=== PATIENT | female | born 1965 | race Caucasian/White ===

== ENCOUNTER 2017-10-28 08:00 | Outpatient (CLI) | payer BC | END 2017-10-28 08:01 | disposition home or self-care (01) | LOC: BICMAMMO 08:00 | PROVIDERS: ATTEND Obstetrics & Gynecology | DX: Z12.31 Encounter for screening mammogram for malignant neoplasm of breast (principal) | CPT/HCPCS: 77063 ==

== ENCOUNTER 2019-01-21 09:36 | Outpatient (CLI) | payer BC ==
--- NOTE | 2019-01-22 08:59 | MMO ---
FILMS COMPARED: The present examination has been compared to prior imaging studies performed at [facility] on 10/28/2017, and at [facility] on 03/17/2014 and 10/26/2016. MAMMOGRAM FINDINGS: There are scattered fibroglandular densities. Benign calcifications are noted bilaterally. There are no suspicious masses, calcifications or areas of architectural distortion. Left biopsy clip. IMPRESSION: FINDINGS IN BOTH BREASTS ARE BENIGN. A ROUTINE FOLLOW-UP MAMMOGRAM IN 1 YEAR IS RECOMMENDED. ACR BI-RADS Category 2 - Benign finding
== END 2019-01-21 09:37 | disposition home or self-care (01) ==
LOC: BICMAMMO 09:36
PROVIDERS: ATTEND Obstetrics & Gynecology
DX: Z12.31 Encounter for screening mammogram for malignant neoplasm of breast (principal)
CPT/HCPCS: 77063; 77067

== ENCOUNTER 2020-10-06 08:16 | Outpatient (CLI) | payer BC ==
--- NOTE | 2020-10-06 08:57 | MMO ---
Bilateral MAMMO Bilat Screen [facility]. CLINICAL HISTORY: Patient is 54 years old and is seen for screening. The patient has no family history of breast cancer. The patient has no personal history of cancer. The patient has a history of left Stereotatic Biopsy - benign. VIEWS: The views performed were: bilateral craniocaudal with tomosynthesis and bilateral mediolateral oblique with tomosynthesis. FILMS COMPARED: The present examination has been compared to prior imaging studies performed at [facility] on 10/28/2017 and 01/21/2019, and at [facility] on 03/17/2014 and 10/26/2016. This study has been interpreted with the assistance of computer-aided detection. MAMMOGRAM FINDINGS: There are scattered fibroglandular densities. Finding 1: There is a stable grouping of calcifications at the outer aspect of the right breast posterior depth. On the MLO view, there is new asymmetry seen in association with these calcifications. There is a new focal asymmetry in the outer right breast with associated new clustered calcifications, positioned slightly medial and inferior to the above described cluster. Associated architectural distortion is suspected. Finding 2: There are stable benign appearing calcifications seen in the left breast. IMPRESSION: FINDING 1: FINDING IN THE RIGHT BREAST REQUIRES ADDITIONAL EVALUATION. RECOMMEND DIAGNOSTIC MAMMOGRAM. ULTRASOUND MAY ALSO PROVE USEFUL AT RECALL. THE RESULTS OF THIS EXAM WERE SENT TO THE PATIENT. ACR BI-RADS Category 0 - Incomplete: Need additional imaging evaluation. [facility] will notify the patient of the need for additional imaging services. MAMMOGRAPHY NOTE: 1. A negative mammogram report should not delay a biopsy if a dominant of clinically suspicious mass is present. 2. Approximately 10% to 15% of breast cancers are not detected by mammography. 3. Adenosis and dense breasts may obscure an underlying neoplasm. Reported by: AYLIN TREVIÑO MD Electonically Signed: [id number]
== END 2020-10-06 08:17 | disposition home or self-care (01) ==
LOC: BICMAMMO 08:16
PROVIDERS: ATTEND Obstetrics & Gynecology
DX: Z12.31 Encounter for screening mammogram for malignant neoplasm of breast (principal); R92.1 Mammographic calcification found on diagnostic imaging of breast; Z91.89 Other specified personal risk factors, not elsewhere classified
CPT/HCPCS: 77063; 77067

== ENCOUNTER 2020-10-11 14:14 | Outpatient (CLI) | payer BC ==
--- NOTE | 2020-10-11 15:15 | MMO ---
Right Breast MAMMO Unilat Diag [facility]. CLINICAL HISTORY: Patient is 54 years old and is seen for additional evaluation requested from prior study. The patient has no family history of breast cancer. The patient has no personal history of cancer. The patient has a history of left Stereotatic Biopsy - benign. VIEWS: The views performed were: right craniocaudal spot compression magnification; right craniocaudal spot compression with tomosynthesis; right mediolateral oblique spot compression with tomosynthesis; right mediolateral spot compression magnification; and right mediolateral with tomosynthesis. FILMS COMPARED: The present examination has been compared to prior imaging studies performed at [facility] on 10/28/2017, 01/21/2019, 10/06/2020 and 10/11/2020. This study has been interpreted with the assistance of computer-aided detection. MAMMOGRAM FINDINGS: There are scattered fibroglandular densities. The calcifications in the right upper outer breast appear to be associated with some architecutural distortion particularly on CC view and some of these appear indeterminate. IMPRESSION: FINDING IN THE RIGHT BREAST IS SUSPICIOUS. A STEREOTACTIC BREAST BIOPSY IS RECOMMENDED. THE RESULTS OF THIS EXAM WERE SENT TO THE PATIENT. ACR BI-RADS Category 4 - Suspicious abnormality - biopsy should be considered D/W pt in person @ 3:05 pm. MAMMOGRAPHY NOTE: 1. A negative mammogram report should not delay a biopsy if a dominant of clinically suspicious mass is present. 2. Approximately 10% to 15% of breast cancers are not detected by mammography. 3. Adenosis and dense breasts may obscure an underlying neoplasm. Reported by: RAINA SIMON MD Electonically Signed: [id number]
--- NOTE | 2020-10-11 15:44 | ULT ---
LIMITED RIGHT BREAST ULTRASOUND: 10/11/20 HISTORY: Abnormal mammograms. FINDINGS: Correlation is made with mammograms of 10/06/20 and 10/11/20. Sonographic evaluation of the right upper outer breast demonstrates a 3 mm well circumscribed hypoech oic nodule at the 9 o'clock position, 4 cm from the nipple. No other abnormalities are seen to corres pond to the findings on the mammogram. Sonographic evaluation of the right axilla demonstrates no lymphadenopathy. IMPRESSION: BI-RADS 4: Suspicious Abnormality - Stereotactic Biopsy of the calcifications in the right upper oute r breast Should Be Considered Usually requires biopsy Six month follow-up ultrasound of the 3 mm nodule in the right breast is recommended. Discussed in person with the patient at 3:05 p.m. POS: OFF
== END 2020-10-11 14:15 | disposition home or self-care (01) ==
LOC: BICMAMMO 14:14
PROVIDERS: ATTEND Obstetrics & Gynecology
DX: R92.8 Other abnormal and inconclusive findings on diagnostic imaging of breast (principal)
CPT/HCPCS: G0279

== ENCOUNTER → 2020-10-27 | Day surgery (SDC) | payer BC ==
--- NOTE | 2020-10-27 10:54 | MMO ---
EXAM: MAMMO Brst Bx Stereo PROVIDED CLINICAL HISTORY: 2 separate grouping of microcalcifications within the outer right breast, one located at approximatel y the 9:00 position and second grouping at approximately the 10:00 position right breast. Biopsy recommended. COMPARISON: Mammograms on 10/06/2020 10/11/2020 TECHNIQUE: The procedure including the risks and complications were explained to the patient, and informed conse nt was obtained. Patient was placed on the stereotactic guided breast biopsy table in the prone position. Microcalcifications in the outer right breast were localized via a lateral medial approach. The larger grouping of microcalcifications at approximately the 9:00 position were localized with stereotactic guidance. Skin and subcutaneous tissues were infiltrated with buffered 1% lidocaine for local anesthesia. A 10-gauge biopsy needle was advanced, and needle positioning was confirmed with stereotactic images. A total of 6 core needle biopsy specimens were obtained. Specimen mammogram was performed demonstrating microcalcifications in the provided specimen. A biopsy marker clip was deployed at site of biopsy. Microcalcifications slightly more posteriorly and superiorly at approximately the 10:00 position were then localized. Skin and subcutaneous tissues were infiltrated with buffered 1% lidocaine for local anesthesia. Small skin incision was made. 10-gauge biopsy needle was advanced and positioning w as confirmed with stereotactic images. A total of 3 biopsy specimens were obtained. Patient complained of significant pain even after infiltration of the area with additional buffered 1% lidoca ine. As result, specimen mammogram was obtained of the specimens, and microcalcifications were seen within the specimen. As result, no additional biopsies were obtained at this time. Biopsy marker clip was deployed at site of biopsy. Hemostasis was achieved with direct pressure for approximately 10 minutes. Dry sterile dressing was p laced at skin incision sites. Dry sterile dressing was placed. The patient tolerated the procedure well and without immediate complication. IMPRESSION: 1. 2 separate groupings of microcalcifications in the outer right breast. 2. Technically successful stereotactic guided biopsy of the 2 separate groupings of microcalcificatio ns. 3. Technically successful biopsy marker clip at sites of biopsy. 4. Pathology is currently pending.
--- NOTE | 2020-10-27 10:56 | MMO ---
EXAM: MAMMO Surgical Specimen PROVIDED CLINICAL HISTORY: 2 separate groupings of microcalcifications in the outer right breast. COMPARISON: Stereotactic images obtained on 10/27/2020 FINDINGS/IMPRESSION: Specimen mammogram was obtained of microcalcifications at approximately the 9:00 position right breas t. There are several microcalcifications seen within the provided specimen.
--- NOTE | 2020-10-27 10:56 | MMO ---
EXAM: MAMMO Surgical Specimen PROVIDED CLINICAL HISTORY: 2 separate groupings of microcalcifications in the outer right breast. COMPARISON: Stereotactic images obtained on 10/27/2020 FINDINGS/IMPRESSION: Specimen mammogram was obtained of microcalcifications at approximately the 10:[address] There are microcalcifications seen within the provided specimen.
--- NOTE | 2020-10-27 11:01 | MMO ---
EXAM: MAMMO Diag Post Proc Ltd Rt PROVIDED CLINICAL HISTORY: 2 separate groupings of microcalcifications in the outer right breast. COMPARISON: Mammograms on 10/06/2020 10/11/2020 FINDINGS: Biopsy marker clips are now seen in the outer right breast. A biopsy marker clip is located approxima tely 8 mm anteriorly and medially with respect to the grouping of microcalcifications closer to the 9:00 position right breast with a biopsy marker clip seen approximately 8 mm medially and posteriorly to the microcalcifications near the 10:00 position right breast. There is decrease in number of microcalcifications. Increased density is seen at sites of biopsy related to recent biopsy. IMPRESSION: Biopsy marker clips are seen adjacent to sites of biopsy of microcalcifications in the outer right br east.
== END ==
LOC: MAMMO 07:00
PROVIDERS: ATTEND Obstetrics & Gynecology
PROC: 0H9T3ZX Drainage of Right Breast, Percutaneous Approach, Diagnostic (ICD-10-PCS; principal; 2020-10-27)
DX: C50.811 Malignant neoplasm of overlapping sites of right female breast (principal); C50.411 Malignant neoplasm of upper-outer quadrant of right female breast
CPT/HCPCS: 19081; 76098; 88305; 88341; 88342

== ENCOUNTER 2021-01-16 10:52 | Outpatient (CLI) | payer BC ==
--- NOTE | 2021-01-16 11:26 | RAD ---
CERVICAL SPINE: 7 views INDICATIONS:Cervical pain COMPARISON:None FINDINGS: Cervical vertebra maintain height. Moderate degenerative change and disc narrowing at C5-6 and C6-7. Mild posterior listhesis at C5-6. Alignment maintained with flexion and extension. Uncinate hypertrophy and facet hypertrophy result in foraminal narrowing at C5-6 and C6-7. No evidence of fracture or osseous abnormality. No soft tissue abnormality identified. IMPRESSION: Degenerative changes cervical spine, most prominent C5-6 and C6-7.
== END 2021-01-16 10:53 | disposition home or self-care (01) ==
LOC: BICRAD 10:52
PROVIDERS: ATTEND Physician Assistant
DX: M50.122 Cervical disc disorder at C5-C6 level with radiculopathy (principal)
CPT/HCPCS: 72052

== ENCOUNTER 2021-02-15 15:25 | Outpatient (CLI) | payer BC | END 2021-02-15 15:26 | disposition home or self-care (01) | LOC: BICMAMMO 15:25 | PROVIDERS: ATTEND Internal Medicine Hematology & Oncology | DX: Z13.820 Encounter for screening for osteoporosis (principal); Z78.0 Asymptomatic menopausal state | CPT/HCPCS: 77080 ==

== ENCOUNTER 2021-10-09 07:58 | Outpatient (CLI) | payer BC | END 2021-10-09 07:59 | disposition home or self-care (01) | LOC: BICULT 07:58 | PROVIDERS: ATTEND Student in an Organized Health Care Education/Training Program | DX: N93.9 Abnormal uterine and vaginal bleeding, unspecified (principal); R93.89 Abnormal findings on diagnostic imaging of other specified body structures; Z90.721 Acquired absence of ovaries, unilateral | CPT/HCPCS: 76856 ==

== ENCOUNTER 2021-10-09 08:02 | Outpatient (CLI) | payer BC | END 2021-10-09 08:03 | disposition home or self-care (01) | LOC: BICMAMMO 08:02 | PROVIDERS: ATTEND Student in an Organized Health Care Education/Training Program | DX: N63.10 Unspecified lump in the right breast, unspecified quadrant (principal) | CPT/HCPCS: 77066; G0279 ==

== ENCOUNTER 2023-11-01 13:18 | Outpatient (CLI) | payer BC | END 2023-11-01 13:19 | disposition home or self-care (01) | LOC: BICMAMMO 13:18 | PROVIDERS: ATTEND Obstetrics & Gynecology | DX: Z08 Encounter for follow-up examination after completed treatment for malignant neoplasm (principal); Z85.3 Personal history of malignant neoplasm of breast | CPT/HCPCS: 77066; G0279 ==

== ENCOUNTER 2024-11-02 09:27 | Outpatient (CLI) | payer BC | END 2024-11-02 09:28 | disposition home or self-care (01) | LOC: BICMAMMO 09:27 | PROVIDERS: ATTEND Obstetrics & Gynecology | DX: Z08 Encounter for follow-up examination after completed treatment for malignant neoplasm (principal); Z85.3 Personal history of malignant neoplasm of breast | CPT/HCPCS: 77066; G0279 ==